=== PATIENT | female | born 1980 | race Caucasian/White ===

== ENCOUNTER 2020-07-24 18:48 | Emergency (ER) | payer OTHER ==
[2020-07-24 19:15] VITALS: BP 113/75; PULSE 65; TEMP 97.9; BMI 30.2
[2020-07-24] MEDS ORDERED: SODIUM CHLORIDE 1,000 ML IV STA (20:29)
[2020-07-24] MEDS ORDERED: ONDANSETRON 4 MG/2 ML VIAL IVPUSH ONE (20:29)
[2020-07-24] MEDS ORDERED: ONDANSETRON 4 MG/2 ML VIAL ONE (21:28)
[2020-07-24 21:52] LABS: BASO % 0.7 % (0-2.0); EOS % 0.9 % (0-4.5); HEMATOCRIT 37.8 % (32.4-45.2); LYMPH % 29.4 % (8-40); MCH 25.1 pg (25.7-33.7); MCHC 31.8 g/dl (32.0-36.0); MEAN PLT VOLUME 8.7 fl (7.5-11.1); MONO % 12.3 % (3.8-10.2); NEUT % 56.7 % (42.8-82.8); PLATELET COUNT 336 K/MM3 (134-434); RBC 4.79 M/mm3 (3.60-5.2); RDW 15.2 % (11.6-15.6); WHITE BLOOD COUNT 5.4 K/mm3 (4.0-10.0)
[2020-07-24 22:44] LABS: POTASSIUM 3.6 mmol/L (3.5-5.1)
[2020-07-24 22:47] LABS: ALBUMIN 3.2 g/dl (3.4-5.0); CALCIUM 8.9 mg/dL (8.5-10.1)
[2020-07-24 22:48] LABS: BLOOD UREA NITROGEN 4.6 mg/dL (7-18)
[2020-07-24 22:51] LABS: CREATININE 0.6 mg/dL (0.55-1.3)
[2020-07-24 22:52] LABS: BILIRUBIN,TOTAL 0.7 mg/dL (0.2-1)
[2020-07-24 23:44] LABS: EPI CELLS 26 /uL (0-25.1); HYALINE CASTS 3 /uL (0-3.1); URINE APPEARANCE CLOUDY; URINE BACTERIA 475 /uL (0-1359); URINE BILIRUBIN 1+ (NEGATIVE); URINE COLOR DK YELLOW; URINE GLUCOSE (UA) NEGATIVE (NEGATIVE); URINE KETONE 1+ (NEGATIVE); URINE LEUK ESTERASE NEGATIVE (NEGATIVE); URINE NITRITE NEGATIVE (NEGATIVE); URINE PROTEIN 1+ (NEGATIVE); URINE RBC 656 /uL (0-23.9); URINE WBC 21 /uL (0-25.8)
[2020-07-24] MEDS ORDERED: FAMOTIDINE 20 MG/50 ML IVPB 20 MG/50 ML MG IVPB ONE (23:55)
[2020-07-25] MEDS ORDERED: FAMOTIDINE 20 MG/50 ML IVPB 20 MG/50 ML MG IVPB ONE (00:05)
== END 2020-07-25 00:14 | disposition home or self-care (01) ==
LOC: JER 18:48
PROC: 3E033GC Introduction of Other Therapeutic Substance into Peripheral Vein, Percutaneous Approach (ICD-10-PCS; principal; 2020-07-24)
PROC: 3E033GC Introduction of Other Therapeutic Substance into Peripheral Vein, Percutaneous Approach (ICD-10-PCS; 2020-07-24)
PROC: 3E0337Z Introduction of Electrolytic and Water Balance Substance into Peripheral Vein, Percutaneous Approach (ICD-10-PCS; 2020-07-24)
DX: U07.1 COVID-19 (principal); R11.2 Nausea with vomiting, unspecified
CPT/HCPCS: 36415; 80053; 81003; 83690; 84703; 85025; 87086; 99284-25

== ENCOUNTER 2021-09-30 20:48 | Emergency (ER) | payer OTHER ==
[2021-09-30 21:03] VITALS: BP 146/92; PULSE 70; TEMP 98.1; BMI 39.6
[2021-09-30] MEDS ORDERED: METHOCARBAMOL 500 MG TABLET PO ONE (22:30)
[2021-09-30] MEDS ORDERED: KETOROLAC TROMETHAMINE 30 MG/1 ML VIAL IM ONE (22:30)
[2021-09-30] MEDS ORDERED: KETOROLAC TROMETHAMINE 30 MG/1 ML VIAL ONE ×2 (22:32)
[2021-09-30] MEDS ORDERED: METHOCARBAMOL 500 MG TABLET ONE (22:32)
== END 2021-09-30 22:41 | disposition home or self-care (01) ==
LOC: JERFT 20:48
PROC: 3E0233Z Introduction of Anti-inflammatory into Muscle, Percutaneous Approach (ICD-10-PCS; principal; 2021-09-30)
DX: M25.511 Pain in right shoulder (principal)
CPT/HCPCS: 73030-TC-RT-FY; 99284-25

== ENCOUNTER 2023-01-02 06:03 | Day surgery (SDC) | payer OTHER ==
[2022-12-30 11:24] VITALS: BMI 40.6
[2023-01-02] MEDS ORDERED: ONDANSETRON 4 MG/2 ML VIAL IVPUSH PRN (07:04)
[2023-01-02] MEDS ORDERED: oxyCODONE HCL 5 MG TABLET PO PRN ×2 (07:04)
[2023-01-02] MEDS ORDERED: DEXAMETHASONE SOD PHOSPHATE 4 MG/1 ML VIAL ONE (07:08)
[2023-01-02] MEDS ORDERED: PROPOFOL 20 ML ONE ×2 (07:08→08:13)
[2023-01-02] MEDS ORDERED: KETOROLAC TROMETHAMINE 30 MG/1 ML VIAL ONE (07:08)
[2023-01-02] MEDS ORDERED: KETAMINE HCL 200 MG/20 ML VIAL ONE (07:09)
[2023-01-02] MEDS ORDERED: MIDAZOLAM HCL 2 MG/2 ML SINGLE DOSE VIAL ONE (07:09)
[2023-01-02] MEDS ORDERED: LACTATED RINGERS SOLUTION 1,000 ML IV SCH (07:15)
[2023-01-02] MEDS ORDERED: BUPIVACAINE HCL/EPINEPHRINE/PF 30 ML VIAL IJ ONE (07:18)
[2023-01-02] MEDS ORDERED: BUPIVACAINE HCL/PF 0.25% (2.5MG/ML) 10 ML VIAL ONE (07:18)
[2023-01-02] MEDS ORDERED: DEXAMETHASONE SOD PHOSPHATE/PF 10 MG/ML SDV ONE (07:20)
[2023-01-02] MEDS ORDERED: BUPIVACAINE HCL/PF 0.5% (5MG/ML) 10 ML VIAL ONE (07:20)
[2023-01-02] MEDS ORDERED: LIDOCAINE HCL/PF 2% SDV 5ML VIAL ONE (07:56)
[2023-01-02] MEDS ORDERED: ACETAMINOPHEN 1000 MG/100 ML BAG IVPB ONE (09:19)
[2023-01-02 10:27] VITALS: TEMP 97.8
[2023-01-02 11:03] VITALS: BP 110/64; PULSE 65; RESP 18
== END 2023-01-02 11:15 | disposition home or self-care (01) ==
LOC: FASU 06:03
PROVIDERS: ATTEND Orthopaedic Surgery
PROC: 0PB94ZZ Excision of Right Clavicle, Percutaneous Endoscopic Approach (ICD-10-PCS; principal; 2023-01-02 08:02)
PROC: 0RBJ4ZZ Excision of Right Shoulder Joint, Percutaneous Endoscopic Approach (ICD-10-PCS; 2023-01-02 08:02)
PROC: 0LS34ZZ Reposition Right Upper Arm Tendon, Percutaneous Endoscopic Approach (ICD-10-PCS; 2023-01-02 08:02)
DX: S46.011D Strain of muscle(s) and tendon(s) of the rotator cuff of right shoulder, subsequent encounter (principal); M75.21 Bicipital tendinitis, right shoulder; M75.51 Bursitis of right shoulder; M65.811 Other synovitis and tenosynovitis, right shoulder; S43.431D Superior glenoid labrum lesion of right shoulder, subsequent encounter; M19.011 Primary osteoarthritis, right shoulder; X58.XXXD Exposure to other specified factors, subsequent encounter
CPT/HCPCS: 81025; 88304-TC; 94760; C1713

== ENCOUNTER 2023-06-15 20:07 | Emergency (ER) | payer OTHER ==
[2023-06-15 20:19] VITALS: BP 140/89; PULSE 113; RESP 20; TEMP 99.5; BMI 40.6
[2023-06-15] MEDS ORDERED: KETOROLAC TROMETHAMINE 30 MG/1 ML VIAL IM ONE (20:56)
[2023-06-15] MEDS ORDERED: KETOROLAC TROMETHAMINE 30 MG/1 ML VIAL ONE (21:12)
[2023-06-15 23:34] LABS: THROAT:GRP A STREP DETECTED (NOTDETECTED)
== END 2023-06-15 23:37 | disposition home or self-care (01) ==
LOC: JERFT 20:07
PROC: 3E0233Z Introduction of Anti-inflammatory into Muscle, Percutaneous Approach (ICD-10-PCS; principal; 2023-06-15)
DX: G44.209 Tension-type headache, unspecified, not intractable (principal); R50.9 Fever, unspecified; J02.0 Streptococcal pharyngitis; R07.9 Chest pain, unspecified; J35.1 Hypertrophy of tonsils; R59.0 Localized enlarged lymph nodes; U07.1 COVID-19
CPT/HCPCS: 0241U-QW; 87651; 99284-25

== ENCOUNTER → 2024-03-02 | Day surgery (SDC) | payer OTHER | END | disposition home or self-care (01) | LOC: FRADUS-SUR 11:14 | PROVIDERS: ATTEND Surgery | PROC: 0HBU3ZX Excision of Left Breast, Percutaneous Approach, Diagnostic (ICD-10-PCS; principal; 2024-03-02) | DX: Z53.8 Procedure and treatment not carried out for other reasons (principal); N63.20 Unspecified lump in the left breast, unspecified quadrant | CPT/HCPCS: 19085 ==